=== PATIENT | male | born 1985 | race Caucasian/White ===

== ENCOUNTER 2017-06-18 10:49 | Emergency (ER) | payer MEDICAID ==
[~2017-06-18] VITALS: Ht 162.6 cm; Wt 69.4 kg
[2017-06-18 10:55] VITALS: BP 111/81
== END 2017-06-18 13:06 | disposition home or self-care (01) ==
LOC: ED 10:49
DX: L03.012 Cellulitis of left finger (principal)

== ENCOUNTER 2017-06-21 08:52 | Emergency (ER) | payer MEDICAID ==
[2017-06-21 09:16] VITALS: BP 121/72
== END 2017-06-21 09:59 | disposition home or self-care (01) ==
LOC: ED 08:52
DX: Z48.00 Encounter for change or removal of nonsurgical wound dressing (principal)

== ENCOUNTER 2017-09-29 18:26 | Emergency (ER) | payer MEDICAID ==
[~2017-09-29] VITALS: Ht 162.6 cm; Wt 68.0 kg
[2017-09-29 18:30] VITALS: Ht 162.6 cm; Wt 68.0 kg
[2017-09-29 19:39] LABS: BASOPHIL % 0.4 % (0-2); PLATELET COUNT 223 x10^3mcL (130-400); RED CELL DISTRIBUTION WIDTH 12.6 % (11.5-14.5)
[2017-09-29 19:45] LABS: CALCIUM 8.9 mg/dL (8.5-10.1); CHLORIDE SERUM 104 mmol/L (98-107); CREATININE SERUM 0.7 mg/dL (0.7-1.3); GFR1 > 60 mL/min; GLUCOSE SERUM 87 mg/dL (74-106); POTASSIUM SERUM 3.8 mmol/L (3.5-5.1); SODIUM SERUM 140 mmol/L (136-145)
[2017-09-29 19:50] LABS: ALBUMIN 4.2 g/dL (3.4-5.0); ALKALINE PHOSPHATASE 82 U/L (46-116); ALT/SGPT 38 U/L (16-63); AMYLASE 69 U/L (25-115); AST/SGOT 27 U/L (15-37); BILIRUBIN TOTAL 0.67 mg/dL (0.20-1.00); LIPASE 153 IU/L (73-393); TOTAL PROTEIN, SERUM 7.1 g/dL (6.4-8.2)
[2017-09-29 20:43] LABS: microscopic required? YES; urine erythrocyte TRACE (NEGATIVE)
[2017-09-29 22:52] VITALS: BP 109/59
== END 2017-09-29 22:52 | disposition home or self-care (01) ==
LOC: ED 18:26
PROVIDERS: Emergency Medicine
DX: B34.9 Viral infection, unspecified (principal)
CPT/HCPCS: 36415; 83880; J1885; Q0092; Q0162

== ENCOUNTER 2017-11-14 20:31 | Emergency (ER) | payer MEDICAID ==
[~2017-11-14] VITALS: Ht 160 cm; Wt 66.7 kg
[2017-11-14 20:58] VITALS: Ht 160 cm; Wt 66.7 kg
[2017-11-14 23:05] VITALS: BP 118/74
== END 2017-11-14 23:05 | disposition home or self-care (01) ==
LOC: ED 20:31
DX: J03.90 Acute tonsillitis, unspecified (principal); R51 Headache; R68.84 Jaw pain; M79.1 Myalgia; R68.83 Chills (without fever)
CPT/HCPCS: J0561; J1100; J1885

== ENCOUNTER 2018-07-19 17:19 | Emergency (ER) | payer MEDICAID ==
[~2018-07-19] VITALS: Ht 160 cm; Wt 62.1 kg
[2018-07-19 17:30] VITALS: BP 123/83; Ht 160 cm; Wt 62.1 kg
== END 2018-07-19 18:53 | disposition home or self-care (01) ==
LOC: ED 17:19
DX: J02.9 Acute pharyngitis, unspecified (principal)